=== PATIENT | male | born 1965 | race Two or more races ===

== ENCOUNTER 2024-01-20 10:31 | Emergency (ER) | payer MEDICAID ==
[~2024-01-20] VITALS: Ht 172.7 cm; Wt 87.8 kg
[2024-01-20 12:00] LABS: Basophils # (auto) 0 10 ^3/uL (0-0.2); Basophils % (auto) 0.3 % (0.0-2.0); Eosinophils # (auto) 0.1 10 ^3/uL (0-0.8); Eosinophils % (auto) 1.8 % (0.0-7.0); Hematocrit 45.6 % (41.0-53.0); Hemoglobin 15.9 g/dL (13.5-17.5); Lymphocytes # (auto) 1.4 10 ^3/uL (0.4-5.4); Lymphocytes % (auto) 18.4 % (10.0-50.0); Mean Corpuscular Hgb Conc. 34.7 g/dL (32.0-36.0); Mean Corpuscular Volume 89.2 fL (80.0-100.0); Monocytes # (auto) 0.3 10 ^3/uL (0-1.3); Monocytes % (auto) 4.3 % (0.0-12.0); Neutrophils # (auto) 5.7 10 ^3/uL (1.6-8.6); Neutrophils % (auto) 75.2 % (37.0-80.0); Red Blood Cells 5.12 10^6/uL (4.5-5.90); Red Cell Distribution Width 12.7 % (11.8-14.3); White Blood Cell 7.6 10^3/uL (4.4-10.8)
[2024-01-20 12:17] LABS: Alanine Aminotransferase 28 U/L (7-40); Albumin 4.5 g/dL (3.2-4.8); Alkaline Phosphatase 113 U/L (46-116); Anion Gap 6 (5-15); Aspartate Aminotransferase 17 U/L (13-40); BUN/Creatinine Ratio 11.3 (10.0-20.0); Bilirubin, Total 0.7 mg/dL (0.2-1.0); Blood Urea Nitrogen 9 mg/dL (9-23); Calcium 9.6 mg/dL (8.7-10.4); Carbon Dioxide 24 mmol/L (20-30); Chloride 105 mmol/L (98-107); Glucose 272 mg/dL (74-106); Lipase 46 U/L (12-53); Potassium 4.2 mmol/L (3.5-5.1); Sodium 135 mmol/L (136-145); Total Protein 7.9 g/dL (5.7-8.2)
[2024-01-20 14:35] VITALS: BP 140/74; PULSE 61; RESP 18; O2SAT 98
[2024-01-20] MEDS: SODIUM CHLORIDE 0.9% 1,000 ML IVB ONE (14:59)
[2024-01-20 15:02] LABS: Urine Bacteria FEW /hpf (None Seen); Urine Blood TRACE /uL (Negative); Urine Clarity Clear (Clear); Urine Color Yellow (Yellow); Urine Mucus FEW (None Seen); Urine Protein, UAD 1+ (Negative); Urine Specific Gravity 1.031 (1.001-1.035); Urine Urobilinogen Normal (Negative); Urine WBC 1 /hpf (0 - 3)
[2024-01-20] MEDS: MECLIZINE HCL 25 MG TAB PO ONE (15:06)
[2024-01-20] MEDS: INSULIN LISPRO (HUMAN) 100 UNITS/ML ML SC ONE (15:06)
[2024-01-20] MEDS ORDERED: METF-371 PO (15:41)
[2024-01-20] MEDS ORDERED: GLIM1TAB PO (15:41)
[2024-01-20] MEDS ORDERED: MECL25CH85 PO (15:42)
== END 2024-01-20 16:13 | disposition home or self-care (01) ==
LOC: ER 10:31
DX: E11.65 Type 2 diabetes mellitus with hyperglycemia (principal); H81.13 Benign paroxysmal vertigo, bilateral; R07.89 Other chest pain
CPT/HCPCS: 36415; 71046; 80053; 81001; 82962; 83690; 83735; 85025; 93005; 96360; 96372; 99285; J1815; J7030; J8597